=== PATIENT | male | born 1940 | race Caucasian/White ===

== ENCOUNTER → 2019-11-02 09:11 | Outpatient (BNVA) | payer MEDICARE, OTHER, SELFPAY | PROVIDERS: Family Provider Nurse Practitioner Family; PCP Nurse Practitioner Family; Visit Provider Nurse Practitioner Family | DX: Z01.89 Encounter for other specified special examinations (principal); Z76.0 Encounter for issue of repeat prescription; N50.82 Scrotal pain; N49.2 Inflammatory disorders of scrotum; I10 Essential (primary) hypertension; E78.5 Hyperlipidemia, unspecified | CPT/HCPCS: 80053; 80061; 82044; 85025 ==

== ENCOUNTER → 2022-08-13 12:46 | Outpatient (BNVA) | payer MEDICARE, OTHER, SELFPAY | PROVIDERS: Family Provider Nurse Practitioner Family; PCP Family Medicine; Visit Provider Emergency Medicine | DX: R31.9 Hematuria, unspecified (principal); R31.0 Gross hematuria; Z12.5 Encounter for screening for malignant neoplasm of prostate | CPT/HCPCS: 81000; 87086; G0103 ==

== ENCOUNTER → 2022-11-23 09:09 | Outpatient (BNVA) | payer MEDICARE, OTHER, SELFPAY | PROVIDERS: Family Provider Nurse Practitioner Family; PCP Family Medicine; Visit Provider Family Medicine | DX: N30.01 Acute cystitis with hematuria (principal) | CPT/HCPCS: 81003; 87086 ==

== ENCOUNTER → 2022-11-30 12:13 | Outpatient (BNVA) | payer MEDICARE, OTHER, SELFPAY | PROVIDERS: Family Provider Nurse Practitioner Family; PCP Family Medicine; Visit Provider Family Medicine | DX: N30.01 Acute cystitis with hematuria (principal) | CPT/HCPCS: 81000; 87086 ==

== ENCOUNTER → 2023-01-05 08:19 | Outpatient (BNVA) | payer MEDICARE, OTHER, SELFPAY | PROVIDERS: Family Provider Nurse Practitioner Family; PCP Family Medicine; Visit Provider Family Medicine | DX: N39.0 Urinary tract infection, site not specified (principal); R31.9 Hematuria, unspecified; R82.90 Unspecified abnormal findings in urine; R31.0 Gross hematuria | CPT/HCPCS: 81000; 87086 ==

== ENCOUNTER 2023-02-07 18:50 | Emergency (ER) | payer MEDICARE, OTHER, SELFPAY ==
[2023-02-07] VITALS (9 sets, daily range): BP systolic 100–143; BP diastolic 52–86; PULSE 73–110; RESP 15–18; TEMP 36.2–37.1; O2SAT 97–100; BMI 27.3
[2023-02-07 19:28] LABS: Basophils % 0.7 %; Eosinophils # 0.1 10^3/uL (0.0-0.8); Eosinophils % 1.5 %; Lymphocytes # 1.5 10^3/uL (0.8-4.8); Lymphocytes % 25.7 %; Mean Corpuscular HGB Conc 30.4 g/dL (30.0-36.0); Mean Corpuscular Hemoglobin 26.3 pg (28.0-34.0); Mean Corpuscular Volume 86.4 fl (80-94); Mean Platelet Volume 9.4 fL (7.4-10.4); Monocytes % 16.2 %; Neutrophils # 3.34 10^3/uL (1.8-7.7); Neutrophils % 55.6 %; Nucleated Red Blood Cells % 0 %; Platelet Count 331 10^3/cmm (130-400); Red Blood Count 2.13 10^6/uL (4.1-5.3); Red Cell Distribution Width 13.3 % (12.1-15.1)
[2023-02-07 19:32] LABS: Hematocrit 18.4 % (42.0-52.0); Hemoglobin 5.6 g/dL (11.7-16.6)
[2023-02-07 19:43] LABS: INR 1.04 (0.8-1.2)
--- NOTE | 2023-02-07 19:45 | ED_ITS ---
HPI - Recheck/Abnormal Lab/Rx General: Chief Complaint: Recheck/Abnormal Lab/Rx Stated Complaint: PCP sent to get blood Time Seen by Provider: 02/07/23 19:29 History of Present Illness: Mr. Alvarez is an 82-year-old gentleman presenting to the emergency department for abnormal lab. He reports a 3-month history of hematuria and with per chart review was initially seen on 08/13/2022. He did report some back trauma after being kicked by cow around that time however is unsure if this is related. He subsequently has been seen multiple times including by clinic and has been treated with course of antibiotics without resolution. He reports that investigative/diagnostic imaging has not been done. Over the past few weeks he has become more lightheaded occasionally and return to clinic today where laboratory studies noted a hemoglobin of 6.1. He denies other sources of bleeding or changes. He does not have abdominal pain or other GI symptoms. Intensity of lightheaded feeling when present is moderate. Course is intermittent. Denies similar episodes in the past. He is not on anticoagulation. No other specific changes in health, exacerbating, or alleviating factors identified. Onset/Timin (Months) Symptoms since prior visit: no new symptoms Associated symptoms: malaise and other Review of Systems General: Reports: 10 or more systems reviewed and unremarkable except in HPI and below PFSH ED PFSH: Medical History GERD (gastroesophageal reflux disease) HTN (hypertension) Hyperlipidemia IBS (irritable bowel syndrome) Insomnia Surgical History History of colon surgery History of esophageal surgery Family History Other CAD (coronary artery disease) Cancer Social History Smoking and tobacco status: never smoked Second hand smoke exposure: No Alcohol intake: never Desire information about alcohol rehabilitation?: No Counseling given: No Substance/Drug Use: never Desire information about substance/drug rehabilitation?: No Counseling given: No Current occupational status: retired Current gender identity: Male Physical Exam Const: COMMON NORMALS: alert GENERAL APPEARANCE: cooperative and well developed HENMT: COMMON NORMALS: normocephalic and atraumatic HEAD & SCALP: normoce phalic and atraumatic Eye: COMMON NORMALS: conjunctivae normal CONJUNCTIVA: Yes conjunctivae normal SCLERA: sclerae normal Neck/C-Spine: COMMON NORMALS: supple GENERAL: Yes trachea midline Resp: COMMON NORMALS: clear to auscultation bilaterally EFFORT & INSPECTION: Yes able to speak in complete sentences AUSCULTATION: clear to auscultation bilaterally Cardio: COMMON NORMALS: regular rhythm RATE: tachycardic RHYTHM: regular rhythm GI: COMMON NORMALS: Soft to palpation PALPATION: Yes Soft to palpation and No Tenderness to palpation present (GI) : COMMON NORMALS: Yes normal external exam Extremity: GENERAL: Yes normal exam except as noted and No edema Neuro: COMMON NORMALS: moves all extremities SENSORIUM/ORIENTATION: Yes alert and No Orientation impaired Psych: COMMON NORMALS: mental status grossly normal and Normal thought process present THOUGHT PROCESS: Normal thought process present Course Vital Signs: Vital signs: Vital Signs Temperature 98.4 F 02/08/23 01:35 Pulse Rate 76 02/08/23 01:35 Respiratory Rate 16 02/08/23 01:35 Blood Pressure 116/78 02/08/23 01:35 Pulse Oximetry 99 02/07/23 23:50 Oxygen Delivery Me thod Room Air 02/07/23 19:15 MDM - Recheck/Abnormal Lab/Rx Medical Decision Making 82-year-old gentleman with 3-month history of hematuria which has been incompletely evaluated presenting to the emergency department for abnormal labs. He does note associated symptoms with anemia and is mildly pale with tachycardia, blood pressure is preserved, he is nontoxic in appearance and exam is otherwise as above. Hemoglobin is 5.6, mild evidence of dehydration on metabolic panel, urinalysis continues to be concerning for hematuria. CT demonstrates concerning finding for likely bladder or bladder adjacent mass which explain symptoms. I offered admission/transfer to the patient which she declined. He is very concerned about his livestock. I did discuss case with [facility] and patient can follow-up with them. Patient was consented for blood transfusion and transfused in the emergency department. The results of ED evaluation were discussed with the patient including prescriptions and/or symptomatic cares (if applicable) including appropriate and responsible use, followup plan, and return precautions. The patient verbalized understanding and felt safe for discharge. Medical Records I reviewed the patient's medical records. Lab Data I reviewed the patient's lab results. 02/07/23 19:15 02/07/23 19:15 Radiology Impressions Abdomen/Pelvis CT 02/07/23 19:55 IMPRESSION: 1. 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 A mass arising from a loop of bowel may also be a consideration, however, no communication of this with the bowel is seen. Consider further evaluation with a CT with delayed phase imaging to assess for contrast in the urinary bladder along with enteric contrast to distinguish this structure from the bowel. 2. Small hiatal hernia. 3. Right middle and lingular lobe atelectasis versus minimal infiltrate. 4. Cholecystectomy. 5. Common bile duct stent. 6. Diverticulosis without diverticulitis. 7. Left-sided inguinal hernia containing omentum without bowel or inflammation. Laboratory Results WBC 6.0 10^3/uL (4.0-10.0) 02/07/23 19:15 RBC 2.13 10^6/uL (4.1-5.3) L 02/07/23 19:15 Hgb 5.6 g/dL (11.7-16.6) L* 02/07/23 19:15 Hct 18.4 % (42.0-52.0) L* 02/07/23 19:15 MCV 86.4 fl (80-94) 02/07/23 19:15 MCH 26.3 pg (28.0-34.0) L 02/07/23 19:15 MCHC 30.4 g/dL (30.0-36.0) 02/07/23 19:15 RDW 13.3 % (12.1-15.1) 02/07/23 19:15 Plt Count 331 10^3/cmm (130-400) 02/07/23 19:15 MPV 9.4 fL (7.4-10.4) 02/07/23 19:15 Neut % (Auto) 55.6 % 02/07/23 19:15 Lymph % (Auto) 25.7 % 02/07/23 19:15 [place] % (Auto) 16.2 % 02/07/23 19:15 Eos % (Auto) 1.5 % 02/07/23 19:15 Baso % (Auto) 0.7 % 02/07/23 19:15 Neut # (Auto) 3.34 10^3/uL (1.8-7.7) 02/07/23 19:15 Lymph # (Auto) 1.5 10^3/uL (0.8-4.8) 02/07/23 19:15 [place] # (Auto) 1.0 10^3/uL (0.2-0.9) H 02/07/23 19:15 Eos # (Auto) 0.1 10^3/uL (0.0-0.8) 02/07/23 19:15 Baso # (Auto) 0.0 10^3/uL (0.0-0.1) 02/07/23 19:15 Nucleated RBC % (auto) 0 % 02/07/23 19:15 Nucleated RBCs # 0.0 /100WBC 02/07/23 19:15 PT 13.90 SECONDS (12.1-14.9) 02/07/23 19:15 INR 1.04 (0.8-1.2) 02/07/23 19:15 Sodium 132 mmol/L (136-145) L 02/07/23 19:15 Potassium 4.8 mmol/L (3.5-5.1) 02/07/23 19:15 Chloride 102 mmol/L (98-107) 02/07/23 19:15 Carbon Dioxide 22 mmol/L (22-29) 02/07/23 19:15 Anion Gap 12.8 (5-19) 02/07/23 19:15 BUN 18 mg/dL (8-23) 02/07/23 19:15 Creatinine 1.3 mg/dL (0.7-1.2) H 02/07/23 19:15 GFR Calculation Not Reportable 02/07/23 19:15 Glucose 120 mg/dL (65-115) H 02/07/23 19:15 Calculated Osmolality 277 mOsm/kg (285-295) L 02/07/23 19:15 Calcium 8.6 mg/dL (8.5-10.5) 02/07/23 19:15 Total Bilirubin 0.2 mg/dL (0.15-1.2) 02/07/23 19:15 AST 14 U/L (0-40) 02/07/23 19:15 ALT 7 U/L (0-41) 02/07/23 19:15 Alkaline Phosphatase 86 U/L (40-130) 02/07/23 19:15 Total Protein 6.4 g/dL (6.6-8.7) L 02/07/23 19:15 Albumin 3.8 g/dL (3.5-5.2) 02/07/23 19:15 Globulin 2.6 g/dL (1.3-4.6) 02/07/23 19:15 Blood Type O Positive 02/07/23 19:52 Rho(D) Type Positive 02/07/23 19:52 Antibody Screen Negative 02/07/23 19:52 Crossmatch See Detail 02/07/23 19:52 Discharge Plan Discharge Patient Disposition: Home Clinical Impression: Anemia due to blood loss, chronic, Symptomatic anemia Hematuria Qualifiers: Hematuria type: gross Qualified Code(s): R31.0 - Gross hematuria Condition: Stable Prescriptions: No Action valsartan 160 mg tablet 160 mg PO DAILY 90 Days Qty: 90 3RF Hold Instructions: Home Medication placed on hold at Doctor's office loratadine 10 mg tablet 10 mg PO DAILY 30 Days Qty: 30 0RF fluticasone propionate [Flonase Allergy Relief] 50 mcg/actuation spray,suspension 1 spray intranasal BID 30 Days Qty: 16 0RF Rx Instructions: administer into each nostril simvastatin 40 mg tablet 40 mg PO DAILY 90 Days Qty: 90 3RF pantoprazole 40 mg tablet,delayed release (DR/EC) 40 mg PO DAILY 90 Days Qty: 90 3RF Discharge Orders: Discharge ED (Routine); Ordered 02/07/23 Ordered By: Micky Carey Referrals: Saskia Pretty MD [Primary Care Provider] - Discharge Diet: Usual diet Discharge Activity: Resume usual activity Patient Instructions: Bladder Cancer (DC), Hematuria (ED), Anemia (ED), Blood Transfusion (DC) Activity Restrictions/Additional Instructions: Thank you for visiting the emergency department. You were seen and evaluated for symptomatic anemia. The most likely cause of your anemia is blood loss secondary to blood in urine. The most likely cause of the blood in your urine is a bladder mass which is highly suspicious for cancer. As discussed you may follow-up with [facility] urology: [address] [place] [address] Call in the morning and let them know that I discussed your case with the on- call urologist. Please also follow-up with your primary care provider. Return to the emergency department for recurrence of lightheadedness/dizziness, chest pain, shortness of breath, changes inability to urinate, abdominal pain, fevers, rash, or anything else that you are concerned about and feel needs emergency department evaluation. Coding Level of Care Code ED See Supervisor for Toni Feliz
[2023-02-07 19:51] LABS: Alanine Aminotransferase 7 U/L (0-41); Albumin Level 3.8 g/dL (3.5-5.2); Alkaline Phosphatase 86 U/L (40-130); Anion Gap 12.8 (5-19); Aspartate Amino Transferase 14 U/L (0-40); Blood Urea Nitrogen 18 mg/dL (8-23); Calcium 8.6 mg/dL (8.5-10.5); Carbon Dioxide 22 mmol/L (22-29); Chloride 102 mmol/L (98-107); Globulin 2.6 g/dL (1.3-4.6); Glucose 120 mg/dL (65-115); Osmolality Calculated 277 mOsm/kg (285-295); Potassium 4.8 mmol/L (3.5-5.1); Sodium 132 mmol/L (136-145); Total Bilirubin 0.2 mg/dL (0.15-1.2); Total Protein 6.4 g/dL (6.6-8.7)
--- NOTE | 2023-02-07 19:55 | CTR_ITS ---
PROCEDURE INFORMATION: Exam: CT Abdomen And Pelvis Without And With Contrast Exam date and time: 02/07/2023 8:11 PM Age: 82 years old Clinical indication: Other: Hematuria, blood loss anemia; Prior surgery; Surgery date: 6+ months; Surgery type: Colon TECHNIQUE: Imaging protocol: Computed tomography of the abdomen and pelvis without and with contrast. Radiation optimization: All CT scans at this facility use at least one of these dose optimization techniques: automated exposure control; mA and/or kV adjustment per patient size (includes targeted exams where dose is matched to clinical indication); or iterative reconstruction. Contrast material: OMNI 350; Contrast volume: 75 ml; Contrast route: INTRAVENOUS (IV); REPORTING DATA: Count of CT and Cardiac NM exams in prior 12 months: This patient has received 0 known CTs and 0 known cardiac nuclear medicine studies in the 12 months prior to the current study. COMPARISON: No relevant prior studies available. RADIATION DOSE METRICS: Total DLP (mGy-cm): 1411.74 FINDINGS: Lungs: Right middle and lingular lobe atelectasis versus minimal infiltrate. Diaphragm: Small hiatal hernia. Liver: Normal. No mass. Gallbladder and bile ducts: Cholecystectomy. Common bile duct stent. Pancreas: Normal. No ductal dilation. Spleen: Normal. No splenomegaly. Adrenal glands: Normal. No mass. Kidneys and ureters: Normal. No hydronephrosis. Stomach and bowel: Diverticulosis without diverticulitis. Appendix: No evidence of appendicitis. Intraperitoneal space: Unremarkable. No free air. No significant fluid collection. Vasculature: Unremarkable. No abdominal aortic aneurysm. Lymph nodes: Unremarkable. No enlarged lymph nodes. Urinary bladder: 8.8 cm cystic structure along the right aspect of the urinary bladder with a 6.9 cm solid component may reflect a urinary bladder diverticulum with an associated malignant mass. A mass arising from a loop of bowel may also be a consideration, however, no communication of this with the bowel is seen. Consider further evaluation with a CT with delayed phase imaging to assess for contrast in the urinary bladder along with enteric contrast to distinguish this structure from the bowel. Reproductive: Unremarkable as visualized. Bones/joints: Unremarkable. No acute fracture. Soft tissues: Left-sided inguinal hernia containing omentum without bowel or inflammation. CT/CT abdomen pelvis [id number] IMPRESSION: 1. 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 A mass arising from a loop of bowel may also be a consideration, however, no communication of this with the bowel is seen. Consider further evaluation with a CT with delayed phase imaging to assess for contrast in the urinary bladder along with enteric contrast to distinguish this structure from the bowel. 2. Small hiatal hernia. 3. Right middle and lingular lobe atelectasis versus minimal infiltrate. 4. Cholecystectomy. 5. Common bile duct stent. 6. Diverticulosis without diverticulitis. 7. Left-sided inguinal hernia containing omentum without bowel or inflammation.
[2023-02-07] MEDS: iohexol 350 mg/mL 500 mL Btl (per mL) IV (20:17)
[2023-02-08 01:35] VITALS: BP 116/78; PULSE 76; RESP 16; TEMP 36.9
--- NOTE | 2023-02-08 09:27 | DCPLANNER ---
Addendum entered by Myrna Menon 02/08/23 12:31: litigation docket manager called [facility] urology clinic to confirm that facility had received patients information. litigation docket manager was told that the facility did receive patients information, it will be reviewed, clinic will call patient with appointment information. Original Note: litigation docket manager had message to refer patient to [facility]. litigation docket manager faxed patients information to [facility] urology, patients information will be reviewed, and clinic will call patient with appointment information.
== END 2023-02-08 01:40 | disposition home or self-care (01) ==
PROVIDERS: Emergency Medicine; Emergency Provider Emergency Medicine; PCP Family Medicine
DX: R31.0 Gross hematuria (principal); D50.0 Iron deficiency anemia secondary to blood loss (chronic); I10 Essential (primary) hypertension; E78.5 Hyperlipidemia, unspecified
CPT/HCPCS: 36415; 36430; 74178; 80053; 80061; 81000; 85025; 85610; 86850; 86900; 86920; 87086; 99285; P9016; Q9967